=== PATIENT | female | born 1975 | race Caucasian/White ===

== ENCOUNTER 2016-12-19 06:14 | Emergency (ER) | payer OTHER ==
[2016-12-19] MEDS ORDERED: Ketorolac Tromethamine 30 MG/ML VIAL ONE (06:35)
[2016-12-19] MEDS ORDERED: Prochlorperazine 10 MG/2 ML VIAL ONE (06:35)
[2016-12-19] MEDS ORDERED: diphenhydrAMINE HCl 50 MG/ML 1 ML VIAL ONE (06:35)
== END 2016-12-19 07:22 | disposition home or self-care (01) ==
LOC: BURERS 06:14
DX: G43.909 Migraine, unspecified, not intractable, without status migrainosus (principal)
CPT/HCPCS: 96361; 96374; 96375; J0780; J1200; J1885

== ENCOUNTER 2017-02-05 20:40 | Emergency (ER) | payer OTHER ==
[2017-02-05] MEDS ORDERED: Morphine Sulfate 2 MG/ML SYRINGE ONE (21:14)
[2017-02-05] MEDS ORDERED: Ondansetron HCl/PF 4 MG/2 ML Vial ONE (21:14)
[2017-02-05 21:23] LABS: Bilirubin Negative (Negative); Blood, Urine Trace (Negative); Clarity Hazy (Clear); Glucose, Urine (Dipstick) Negative (Negative); Leukocyte Negative (Negative); Nitrite Negative (Negative); Protein, Urine (Dipstick) Negative (Neg-Trace); Urobilinogen 0.2 mg/dL (0.2-1.0)
[2017-02-05 21:24] LABS: Pregnancy Test - Urine (BHCG) Negative (Negative); Pregu Control Background? CLEAR/WHITE (CLR/WHITE); Pregu Control Bar Appear? YES (CONTROL BAR)
[2017-02-05 21:34] LABS: Bacteria/HPF 1+ HPF (None Seen); RBC/HPF 0-3 HPF (0-3); WBC/HPF 0-3 HPF (0-3)
[2017-02-05 21:35] LABS: Other Microscopic Description FEW CLUE CELLS
[2017-02-05 21:39] LABS: #Basophils 0.1 thou/uL (0.0-0.2); #Eosinphils 0.1 thou/uL (0.0-0.7); #Lymphocytes 3.4 thou/uL (1.20-3.40); #Monocytes 0.5 thou/uL (0.11-0.59); #Neutrophils 5.6 thou/uL (1.40-6.50); %Basophils 1.3 % (0.0-1.0); %Eosinophils 0.9 % (0.0-10.0); %Lymphocytes 35.2 % (21.0-51.0); %Monocytes 5.4 % (0.0-10.0); %Neutrophils 57.2 % (42.0-75.0); Hemoglobin 14.4 g/dL (12.0-16.0); Mean Corpuscular HGB CONC 35.7 g/dL (32.0-36.0); Mean Corpuscular Hemoglobin 32.6 pg (27.0-31.0); Mean Corpuscular Volume 91.4 fl (81.0-99.0); Mean Platelet Volume 7.6 fL (7.4-10.4); Platelet Count 232 thou/uL (130-400); RBC Distribution Width 11.1 % (11.5-14.5); White Blood Cell (WBC) Count 9.7 thou/uL (4.8-10.8)
[2017-02-05 21:49] LABS: ALT (SGPT) 22 U/L (8-55); AST (SGOT) 19 U/L (5-34); Albumin 4.3 g/dL (3.5-5.0); Alkaline Phosphatase 85 U/L (40-150); Anion Gap 16 mmol/L (10-20); BUN (Urea Nitrogen) 22 mg/dL (7.0-18.7); Bilirubin, Total 0.5 mg/dL (0.2-1.2); Calc. Creatinine Clearance 0 mL/min (70-130); Calcium 9.5 mg/dL (7.8-10.44); Carbon Dioxide 19 mmol/L (22-29); Chloride 107 mmol/L (98-107); Estimated GFR-MDRD 77; Globulin 3.3 g/dL (2.4-3.5); Glucose 97 mg/dL (70-105); Lipase 40 U/L (8-78); Protein, Total 7.6 g/dL (6.0-8.3); Sodium 138 mmol/L (136-145)
--- NOTE | 2017-02-05 22:32 | CT ---
CT ABDOMEN AND PELVIS WITH CONTRAST 02/05/[address] of the abdomen and pelvis was done using IV contrast only. Oral contrast was withheld by jakob kessler. Axial slices were initially acquired, then coronal and sagittal reconstructions were done. The major finding on the study is a cystic lesion in the right adnexa that measures about 6.2 cm in AP dimension. There is a fluid-fluid level in it with the dependent fluid being rather dense, raisin g a question of hemorrhage. A small amount of free fluid appears to be present about this lesion. Elsewhere in the pelvis, no other masses or inflammatory changes were seen. The appendix is identifi ed and appears normal. The upper abdomen was unremarkable. The liver, spleen, pancreas, adrenal glands, kidneys, gallbladde r, and abdominal aorta all appear normal. A small subcentimeter cyst is seen in the left lobe of the liver. The lung bases are clear. IMPRESSION: 6.2 cm cystic lesion of the right adnexal region with a fluid-fluid level, and possibly with hemorrh age. There is a small amount of free fluid around it. Diagnostic considerations would include a hemo rrhagic cyst, other cystic ovarian lesion, and possibly even ovarian torsion. An ultrasound as a nex t step to investigate this is recommended. Findings and need for ultrasound discussed with Dr. Umanzor at 2200 on 02/05/17. Code CR POS: HOME
[2017-02-05] MEDS ORDERED: Ketorolac Tromethamine 30 MG/ML VIAL ONE (22:47)
== END 2017-02-05 23:00 | disposition short-term general hospital (02) ==
LOC: BURERS 20:40
DX: N83.511 Torsion of right ovary and ovarian pedicle (principal)
CPT/HCPCS: 74177; 80053; 81003; 81015; 81025; 83605; 83690; 85025; 96374; 96375; 96376; J1170; J1885; J2270; J2405

== ENCOUNTER 2024-07-30 11:53 | Emergency (ER) | payer BC, OTHER ==
[2024-07-30 12:36] LABS: #Basophils 0.1 thou/uL (0.0-0.2); #Lymphocytes 3.1 thou/uL (1.20-3.40); #Monocytes 0.5 thou/uL (0.11-0.59); #Neutrophils 4.6 thou/uL (1.40-6.50); %Eosinophils 0.3 % (0.0-10.0); %Lymphocytes 36.9 % (21.0-51.0); %Monocytes 6.5 % (0.0-10.0); %Neutrophils 55.3 % (42.0-75.0); Hematocrit 47.2 % (36.0-47.0); Hemoglobin 16.3 g/dL (12.0-16.0); Mean Corpuscular HGB CONC 34.6 g/dL (32.0-36.0); Mean Corpuscular Hemoglobin 28.9 pg (27.0-31.0); Mean Corpuscular Volume 83.6 fl (78.0-98.0); Mean Platelet Volume 7.6 fL (7.4-10.4); Platelet Count 345 10x3/uL (130-400); Red Blood Cell (RBC) Count 5.65 mill/uL (4.20-5.40); White Blood Cell (WBC) Count 8.3 10x3/uL (4.8-10.8)
[2024-07-30 12:45] LABS: ALT (SGPT) 39 U/L (Less than 34); AST (SGOT) 24 U/L (11-34); Albumin 4.5 g/dL (3.1-4.5); Alkaline Phosphatase 98 U/L (40-110); Anion Gap 18 mmol/L (10-20); BUN (Urea Nitrogen) 21 mg/dL (7.0-18.7); Bilirubin, Total 0.7 mg/dL (0.3-1.2); Calc. Creatinine Clearance 0 mL/min (70-130); Calcium 9.9 mg/dL (7.8-10.44); Carbon Dioxide 23 mmol/L (22-29); Chloride 99 mmol/L (98-107); Estimated GFR 64; Globulin 3.5 g/dL (2.4-3.5); Glucose 111 mg/dL (70-105); Potassium 3.4 mmol/L (3.5-5.1); Sodium 137 mmol/L (136-145)
[2024-07-30 12:46] LABS: Troponin I Less than 0.010 ng/mL (< 0.028)
[2024-07-30 12:50] LABS: Bilirubin Small (Negative); Blood, Urine Negative (Negative); Clarity Slightly Cloudy (Clear); Glucose, Urine (Dipstick) Negative (Negative); Ketone, Urine Trace mg/dL (Negative); Leukocyte Negative (Negative); Nitrite Negative (Negative); Protein, Urine (Dipstick) 30 mg/dL (Neg-Trace); Specific Gravity, Urine 1.025 (1.005-1.030); Urobilinogen 0.2 mg/dL (Less than 2); pH, Urine 5.5 (5.0-9.0)
[2024-07-30 13:03] LABS: Bacteria/HPF 3+ HPF (None Seen); CAUTI Indications for Culture Alt mental st,lethar; Mucous/LPF 4+ LPF (<2+); RBC/HPF None Seen HPF (0-3); WBC/HPF 0-3 HPF (0-3)
[2024-07-30 13:04] LABS: Urine Culture Reflex No No
== END 2024-07-30 13:25 | disposition home or self-care (01) ==
LOC: BURERS 11:53
DX: E86.0 Dehydration (principal); R11.2 Nausea with vomiting, unspecified; I10 Essential (primary) hypertension; Z79.899 Other long term (current) drug therapy
CPT/HCPCS: 80053; 81001; 83880; 84484; 85025; 93005; 94760; 96360